=== PATIENT | male | born 1990 | race Caucasian/White ===

== ENCOUNTER 2020-04-08 23:41 | Emergency (ER) | payer OTHER ==
[2020-04-09] MEDS ORDERED: TOBREX5 ML EYEBOTH (03:08)
== END 2020-04-09 03:02 | disposition home or self-care (01) ==
LOC: FER 23:41
DX: H10.33 Unspecified acute conjunctivitis, bilateral (principal); F17.210 Nicotine dependence, cigarettes, uncomplicated
CPT/HCPCS: 99283